=== PATIENT | female | born 1955 | race Caucasian/White ===

== ENCOUNTER → 2018-08-10 | Outpatient (CLI) | payer OTHER ==
[2018-08-10 09:28] LABS: PLATELET COUNT, AUTOMATED 231 K/uL (150-450)
== END ==
LOC: LAB 09:07
DX: J84.9 Interstitial pulmonary disease, unspecified (principal)
CPT/HCPCS: 36415; 82040; 82247; 82248; 84075; 84155; 84450; 84460; 85025

== ENCOUNTER → 2018-09-07 | Outpatient (CLI) | payer OTHER ==
[~2018-09-07] MED LIST: ALBU8.5H IH; CELLC500PT PO; CHOL100052 PO; DIPH-740 PO; FLAX100029 PO; FLU220R INH; IBUP-136 PO; LACT1CAP6 PO; LORA5TAB16 PO; MONT10TA PO; MULT-865 PO; OMEP10CA40 PO; PNEI IM; PSEU120T69 PO; PSYL1000 MC; SULF-198 PO; UBID100C48 PO
[2018-09-07 10:12] LABS: PLATELET COUNT, AUTOMATED 206 K/uL (150-450)
== END ==
LOC: LAB 09:35
PROVIDERS: ATTEND Internal Medicine Critical Care Medicine
DX: J84.9 Interstitial pulmonary disease, unspecified (principal)
CPT/HCPCS: 82040; 82247; 82248; 84075; 84155; 84450; 84460; 85025

== ENCOUNTER → 2018-09-07 | Outpatient (CLI) | payer OTHER | LOC: LAB 09:38 | PROVIDERS: ATTEND Internal Medicine | DX: R76.8 Other specified abnormal immunological findings in serum (principal) | CPT/HCPCS: 36415; 85651; 86140 ==

== ENCOUNTER → 2018-09-08 | Outpatient (CLI) | payer OTHER ==
[2018-09-08 12:06] LABS: LDL CHOLESTEROL 119 mg/dl
== END ==
LOC: LAB 11:46
PROVIDERS: ATTEND Emergency Medicine
DX: E66.9 Obesity, unspecified (principal)
CPT/HCPCS: 82310; 82374; 82435; 82465; 82565; 82947; 83036; 83718; 84132; 84295; 84443; 84478; 84520

== ENCOUNTER → 2018-09-29 | Outpatient (CLI) | payer OTHER ==
[~2018-09-29] MED LIST changes: +REGADENOSON 0.4 MG/5 ML SYR ONE
--- NOTE | 2018-09-29 12:00 | RADIOLOGY IMAGING REPORT ---
FACILITY: [facility] - [place] PATIENT NAME: Logan Ramos : 1955 MR: [id number] V: [id number] EXAM DATE: ORDERING PHYSICIAN: APURVA ARENAS TECHNOLOGIST: Location: [facility] [place] Patient: Logan Ramos : 1955 Visit/Account:[id number] Date of Sevice: 09/29/2018 EXAMINATION: Single isotope SPECT imaging with regadenoson infusion and gated SPECT imaging. DATE OF EXAMINATION: 09/29/2018. DATE OF INTERPRETATION: 09/29/2018. REQUESTING PHYSICIAN: APURVA ARENAS. INDICATION: The patient is a 63-year-old female evaluated for pulmonary hypertension. PROCEDURE: After informed consent the patient received an intravenous injection of 11.7 mCi of Tc-99 m sestamibi followed at an appropriate time interval by rest imaging. The patient then subsequently received an intravenous infusion of 0.4 mg of regadenoson per protocol without complication. Resting heart rate was 74 bpm with a peak heart rate of 104 bpm. Blood pressure at rest was 132 / 74 and fo llowing infusion was 146 / 85. Baseline EKG demonstrates normal sinus rhythm. There were no EKG jemima nges of ischemia following infusion. Symptoms were nonspecific. The patient then received an intrav enous injection of 28.2 mCi of Tc-99m sestamibi followed by stress imaging. RAW DATA: Examination of the summed raw data revealed a poor quality study. There is attenuation art ifact in the anterior wall and inferior wall. MYOCARDIAL PERFUSION: The tomographic images demonstrate diffusely diminished myocardial tracer upta ke in the rest images. This is likely artifact. There is diminished uptake in the basal, mid, and api ariel anterior whittaker on stress imaging and on prone imaging. This is likely from breast attenuation. No transient ischemic dilation.. GATED IMAGES: The gated images demonstrate calculated ejection fraction of 51% with inferior wall hy pokinesis.. IMPRESSION: 1. Nondiagnostic pharmacologic stress ECG 2. This is a technically limited study. Diffuse diminished uptake on the rest images is likely artifa ct. There is a fixed anterior defect that is also likely breast attenuation but old anterior CA canno t be ruled out. 3. Mildly diminished LV systolic function; LVEF 51%. Inferior wall hypokinesis 4. Based on the results of this exam, the patient appears to be at intermediate risk for future cardi ovascular events. 5. I recommend further evaluation with dobutamine stress echocardiography versus coronary CT angiogra m due to the technical limitations of the study. I do not think this study is of diagnostic quality. Report Dictated By: Carlin Rao at 09/29/2018 11:47 AM Report E-Signed By: Carlin Rao at 09/29/2018 11:55 AM WSN:[id number]
--- NOTE | 2018-09-29 16:41 | RT STRESS TEST REPORT ---
FACILITY: [facility] PATIENT NAME: INOCENCIO CLARKE : [id number] MR: [id number] V: [id number] EXAM DATE: ORDERING PHYSICIAN: APURVA ARENAS TECHNOLOGIST: Micky Acquisition Time: 2018-09-29 09:28:06 Total Exercise Time: 00:01:00 Test Indications: PULMONARY HTN Medications: SEE NUC MED SHEET Protocol: LEXISCAN Max HR: 104 BPM 66% of Pred: 157 BPM Max BP: 146/085 mmHG Max Work Load: 1.0 METS Impression No EKG changes tosuggest ischemia Nuclear medicine report to follow seperately Confirmed by ABRAN MCQUEEN ([id number]) on 09/29/2018 4:41:09 PM Referred By: APURVA ARENAS Overread By: ABRAN MCQUEEN
== END ==
LOC: NUC 00:33
PROVIDERS: ATTEND Emergency Medicine
DX: I27.20 Pulmonary hypertension, unspecified (principal)
CPT/HCPCS: 78452; 93017; A9500; J2785

== ENCOUNTER → 2018-10-28 | Outpatient (CLI) | payer OTHER ==
[~2018-10-28] MED LIST changes: +OXYGENHOME INH; -REGADENOSON 0.4 MG/5 ML SYR ONE
== END ==
LOC: RESP 20:37
PROVIDERS: ATTEND Emergency Medicine
DX: G47.30 Sleep apnea, unspecified (principal); G47.36 Sleep related hypoventilation in conditions classified elsewhere

== ENCOUNTER → 2018-12-11 | Outpatient (CLI) | payer OTHER ==
[2018-12-11 14:18] LABS: PLATELET COUNT, AUTOMATED 218 K/uL (150-450)
== END ==
LOC: LAB 13:56
PROVIDERS: ATTEND Internal Medicine Critical Care Medicine
DX: J84.9 Interstitial pulmonary disease, unspecified (principal)
CPT/HCPCS: 36415; 82040; 82247; 82248; 84075; 84155; 84450; 84460; 85025

== ENCOUNTER → 2019-01-15 | Outpatient (CLI) | payer OTHER ==
[2019-01-15 10:57] LABS: PLATELET COUNT, AUTOMATED 152 K/uL (150-450)
== END ==
LOC: LAB 10:32
PROVIDERS: ATTEND Internal Medicine Critical Care Medicine
DX: J84.9 Interstitial pulmonary disease, unspecified (principal)
CPT/HCPCS: 36415; 82040; 82247; 82248; 84075; 84155; 84450; 84460; 85025

== ENCOUNTER → 2019-05-31 | Outpatient (CLI) | payer OTHER ==
[~2019-05-31] MED LIST changes: +AZIT-1 PO; -OMEP10CA40 PO; +OMEP10CA41 PO
--- NOTE | 2019-05-31 15:51 | RADIOLOGY IMAGING REPORT ---
FACILITY: [facility] [place] PATIENT NAME: Logan Ramos : 1955 MR: [id number] V: [id number] EXAM DATE: ORDERING PHYSICIAN: SHAYLA FISCHER TECHNOLOGIST: [place] [facility] [place] : 1955 Visit/Account:[id number] Date of Sevice: 05/31/2019 EXAMINATION: CT of the Paranasal Sinuses HISTORY: Interstitial lung disease, cough TECHNIQUE: CT was performed through the paranasal sinuses without intravenous contrast administratio n. Coronal and sagittal reformatted images were generated. One of the following dose optimization techniques was utilized in the performance of this exam: autom ated exposure control; adjustment of the mA and/or kV according to patient size; or use of iterative reconstruction technique. Specific details can be referenced in the facility's radiology CT exam ope rational policy. COMPARISON: None. FINDINGS: Clear mastoid air cells and middle ear cavities. No apparent nasal cavity polyp. Right janes bullosa . Minimal left maxillary sinus mucosal thickening. Leftward nasal septum deviation measures 3 to 4 mm small left nasal septum spur contacts the mucosa of the left inferior turbinate. Patent infundibula. Normal temporomandibular joints. The visible extracranial and intracranial structures are normal. IMPRESSION: 1. Minimal left maxillary sinus mucosal thickening. Otherwise clear sinuses. 2. 3-4 mm leftward nasal septum deviation. 3. Small left nasal septum spur contacts the left inferior turbinate mucosa. 4. Right janes bullosa. Report Dictated By: Anastacio Burger MD at 05/31/2019 3:37 PM Report E-Signed By: Anastacio Burger MD at 05/31/2019 3:42 PM WSN:[id number]
--- NOTE | 2019-05-31 18:37 | RADIOLOGY IMAGING REPORT ---
FACILITY: [facility] PATIENT NAME: Logan Ramos : 1955 MR: [id number] V: [id number] EXAM DATE: ORDERING PHYSICIAN: SHAYLA FISCHER TECHNOLOGIST: Location: [facility] Patient: Logan Ramos : 1955 Visit/Account:[id number] Date of Sevice: 05/31/2019 CT CHEST W/O CONTRAST HISTORY: Cough. Interstitial lung disease. TECHNIQUE: CT imaging was obtained through the chest without intravenous contrast. Images obtained on inspiration, expiration and prone. One of the following dose optimization techniques was utilized in the performance of this exam: automated exposure control; adjustment of the mA and/or kv accordin g to patient size; or use of iterative reconstruction technique. Specific details can be referenced i n the facility's radiology CT exam operational policy. CONTRAST: None COMPARISON: None. FINDINGS: CHEST: Lower neck: Negative. Vessels: Negative Heart and pericardium: Negative. Mediastinum/hilum/lymph nodes: There is a mildly enlarged precarinal lymph node measuring 1.7 x 1.2 cm (image 32). No bulky hilar lymphadenopathy. Lungs/pleura: There are 2 suture lines within the right lung likely from prior biopsy. There are mo derate bilateral reticular opacities with both central and peripheral involvement with upper lobe pre dominance with traction bronchiectasis especially within the medial right lower lobe where there may also be some subtle honeycombing. No significant air trapping Upper abdomen: Gallstones. Bones/soft tissues: Negative. IMPRESSION: 1. Reticular opacities with traction bronchiectasis with upper-mid lung predominance are atypical fo r UIP. There may be some early honeycombing medially within the right lower lobe. Recommend correla tion with prior biopsy results. Report Dictated By: Denys Corea MD at 05/31/2019 6:18 PM Report E-Signed By: Denys Corea MD at 05/31/2019 6:29 PM WSN:[id number]
== END ==
LOC: CT 03:44
PROVIDERS: ATTEND Internal Medicine Critical Care Medicine
DX: J34.2 Deviated nasal septum (principal); J34.89 Other specified disorders of nose and nasal sinuses; J34.9 Unspecified disorder of nose and nasal sinuses
CPT/HCPCS: 70486; 71250